=== PATIENT | female | born 1990 | race Caucasian/White ===

== ENCOUNTER 2020-05-19 02:54 | Emergency (ER) | payer BC ==
[~2020-05-19] VITALS: Ht 172.7 cm; Wt 65.9 kg
--- NOTE | 2020-05-19 03:17 | NUR ---
dr. quiñones performing us at bedside of [facility]
[2020-05-19] MEDS ORDERED: mag hydrox/Alum hydrox/simeth 30ml oral suspension PO ONE (03:25)
[2020-05-19] MEDS ORDERED: sucralfate 1gm/10ml UD suspension PO SCH (03:25)
[2020-05-19] MEDS ORDERED: famotidine/PF 10 mg/ml inj IV ONE (03:25)
[2020-05-19] MEDS ORDERED: LIDOcaine Viscous 15ml cup MM PRN (03:25)
[2020-05-19] MEDS ORDERED: pantoprazole 40 MG vial IV ONE (03:25)
[2020-05-19 03:48] LABS: URINE HCG NEGATIVE (NEG)
[2020-05-19 03:55] LABS: BASOPHILS # (AUTO) 0.1 X10'3 (0-0.2); BASOPHILS % (AUTO) 1.2 % (0-1); EOSINOPHILS # (AUTO) 0.9 X10'3 (0-0.9); HEMATOCRIT 36.7 % (35.0-45.0); LYMPHOCYTES # (AUTO) 2.5 X10'3 (1.1-4.8); MEAN CORPUSCULAR HEMOGLOBIN 25.6 PG (27.0-31.0); MEAN CORPUSCULAR HGB CONC 32.7 g/dL (33.0-36.5); MEAN CORPUSCULAR VOLUME 78.5 FL (78-98); MEAN PLATELET VOLUME 8.8 FL (7.4-10.4); MONOCYTES # (AUTO) 0.5 X10'3 (0-0.9); MONOCYTES % (AUTO) 7.1 % (2-12); NEUTROPHILS # (AUTO) 3.2 X10'3 (1.8-7.7); NEUTROPHILS % (AUTO) 44.7 % (42-75); PLATELET COUNT 168 X10'3 (140-440); RED BLOOD COUNT 4.67 X10'6 (4.20-5.60); RED CELL DISTRIBUTION WIDTH 15.4 % (11.5-14.5); WHITE BLOOD COUNT 7.3 X10'3 (4.5-11.0)
[2020-05-19 04:02] LABS: ALANINE AMINOTRANSFERASE 17 U/L (12-78); ALBUMIN 3.8 G/DL (3.4-5.0); ALBUMIN/GLOBULIN RATIO 1.3 (1.1-1.5); ALKALINE PHOSPHATASE 41 IU/L (46-116); ANION GAP 7 (8-16); ASPARTATE AMINO TRANSFERASE 14 U/L (10-37); BILIRUBIN,TOTAL 0.3 MG/DL (0.1-1.0); BLOOD UREA NITROGEN 15 MG/DL (7-18); BUN/CREATININE RATIO 17.6 (6.6-38.0); CALCIUM 8.6 MG/DL (8.5-10.1); CHLORIDE 104 MMOL/L (99-107); CREATININE 0.85 MG/DL (0.40-0.90); GLUCOSE 91 MG/DL (70-104); LIPASE 174 U/L (73-393); POTASSIUM 3.8 MMOL/L (3.5-5.1); SODIUM 138 MMOL/L (135-145); TOTAL CARBON DIOXIDE 27.2 MMOL/L (24-32); TOTAL PROTEIN 6.8 G/DL (6.4-8.2); eGFR 78 ML/MIN
--- NOTE | 2020-05-19 04:04 | NUR ---
patient verbalized relief with medication that has been administered dr. quiñones aware
[2020-05-19 04:09] LABS: CLARITY,URINE CLEAR (Clear); COLOR,URINE YELLOW (Yellow); GLUCOSE, URINE NEGATIVE (Neg); KETONES,URINE NEGATIVE (Neg); LEUKOCYTE ESTERASE ,URINE NEGATIVE (Neg); NITRITES, URINE NEGATIVE (Neg); OCCULT BLOOD,URINE NEGATIVE (Neg); PH,URINE 5.5 (4.8-8.0); PROTEIN,URINE NEGATIVE (Neg); UROBILINOGEN,URINE 0.2 E.U/dL (0.2-1.0)
[2020-05-19 04:12] LABS: UA COLLECTION TYPE CLN CATCH MIDSTREAM
[2020-05-19] MEDS ORDERED: OMEP20CA15 PO (04:16)
[2020-05-19] MEDS ORDERED: FAMO20TA44 PO (04:16)
[2020-05-19] MEDS ORDERED: SUCR1TAB34 PO (04:16)
[2020-05-19] MEDS ORDERED: ONDA4TAB6 PO (04:16)
[2020-05-19 04:37] VITALS: BP 109/79
== END 2020-05-19 04:39 | disposition home or self-care (01) ==
LOC: ER 02:54
DX: R10.11 Right upper quadrant pain (principal); R11.0 Nausea; K59.00 Constipation, unspecified; F17.200 Nicotine dependence, unspecified, uncomplicated; Z98.890 Other specified postprocedural states; Z72.89 Other problems related to lifestyle; Z88.1 Allergy status to other antibiotic agents; Z88.8 Allergy status to other drugs, medicaments and biological substances; Z79.899 Other long term (current) drug therapy
CPT/HCPCS: 36415; 80053; 81003; 81025; 83690; 85025; 96374; 96375; 99284; C9113; J3490

== ENCOUNTER 2020-07-17 09:18 | Day surgery (SDC) | payer BC ==
[~2020-07-17] VITALS: Ht 172.7 cm; Wt 65.9 kg
[~2020-07-17 09:18] MED LIST: FAMO20TA44 PO; OMEP20CA15 PO; ONDA4TAB6 PO; SUCR1TAB34 PO
[2020-07-17 09:26] VITALS: BP 109/72
[2020-07-17] MEDS ORDERED: fentaNYL/PF 50MCG/1 ML 2ML syringe ONE (09:26)
[2020-07-17] MEDS ORDERED: LIDOcaine Viscous 15ml cup ONE (09:27)
[2020-07-17] MEDS ORDERED: MIDAZolam 5mg/5ml vial ONE (09:27)
[2020-07-17] MEDS ORDERED: CITA20TA19 PO (09:33)
[2020-07-17 10:23] VITALS: BP 97/62
[2020-07-17 10:33] VITALS: BP 101/61
[2020-07-17 10:43] VITALS: BP 104/56
[2020-07-17 10:53] VITALS: BP 105/59
== END 2020-07-17 11:00 | disposition home or self-care (01) ==
LOC: GI LAB 09:18
PROVIDERS: ATTEND Internal Medicine Gastroenterology
DX: R10.10 Upper abdominal pain, unspecified (principal)
CPT/HCPCS: 43239; 99152; J2250; J3010; J7040; A4620

== ENCOUNTER 2020-10-05 10:38 | Outpatient (CLI) | payer OTHER ==
[~2020-10-05 10:38] MED LIST changes: +CITA20TA19 PO; -FAMO20TA44 PO; -OMEP20CA15 PO; -ONDA4TAB6 PO; -SUCR1TAB34 PO
== END 2020-10-05 23:59 | disposition home or self-care (01) ==
LOC: LAB 10:38
PROVIDERS: ATTEND Internal Medicine Infectious Disease
DX: Z53.9 Procedure and treatment not carried out, unspecified reason (principal)